=== PATIENT | female | born 1970 | race Caucasian/White ===

== ENCOUNTER → 2018-05-06 | Outpatient (CLI) | payer OTHER ==
--- NOTE | 2018-05-06 15:35 | KCIC ---
MR of the left hand HISTORY: Swelling, decrease in strength and range of motion. Pain near the fourth and fifth metacarpals since injury last December. TECHNIQUE: Routine multiplanar sequences are obtained. STIR images were obtained due to and homogeneity of fat suppression. FINDINGS: No evidence of bone destruction, acute fracture or marrow edema. No abnormal soft tissue edema, fluid collection or swelling. Flexor and extensor tendons appear grossly intact without significant tendon sheath fluid. Metatarsophalangeal joint collateral ligaments appear intact without acute disruption. IMPRESSION: No evidence of acute abnormality. Electronically signed by: Jarad Mullins MD (05/06/2018 3:31 PM) [id number]
== END | disposition home or self-care (01) ==
LOC: KCIC MRI 13:28
PROVIDERS: ATTEND Nurse Practitioner Family
DX: M79.642 Pain in left hand (principal); M79.89 Other specified soft tissue disorders
CPT/HCPCS: 73221